=== PATIENT | male | born 1940 | race Caucasian/White ===

== ENCOUNTER 2017-02-08 08:19 | Inpatient (IN) | payer MEDICARE, BC ==
--- NOTE | 2017-02-08 09:09 | RAD ---
EXAM DESCRIPTION: Chest,1 View CLINICAL HISTORY: 76 years Male, dyspnea IMPRESSION: Probable pulmonary fibrosis with reticular changes and honeycombing within the bilateral lung bases. Cardiomegaly. These findings may have progressed when compared to August 05, 2015. No pleural effusion noted. Heart size has remained stable. Electronically signed by: Satish Akins MD 02/08/2017 9:09 AM CDT
[2017-02-08] MEDS ORDERED: methylPREDNISolone SODIUM SUC 125 MG/2 ML VIAL IV ONE ×2 (09:29→12:02)
[2017-02-08] MEDS ORDERED: cefTRIAXone SODIUM 1 GM in SODIUM CHL 0.9% 50ML MIN-BAG+ 50 ML IVPB ONE (09:30)
[2017-02-08] MEDS ORDERED: AZITHROMYCIN IV 500 MG in SODIUM CHLORIDE 0.9% 250ML 250 ML IVPB ONE (09:31)
[2017-02-08] MEDS ORDERED: IPRATROPIUM/ALBUTEROL 3 ML VIAL NEB ONE (09:32)
[2017-02-08] MEDS ORDERED: cefTRIAXone SODIUM 1 GM VIAL ONE (09:35)
[2017-02-08] MEDS ORDERED: AZITHROMYCIN IV 500 MG VIAL IVPB ONE ×2 (09:35→10:29)
[2017-02-08] MEDS ORDERED: SODIUM CHLORIDE 0.9% 250ML 250 ML ONE (09:36)
[2017-02-08] MEDS ORDERED: SODIUM CHL 0.9% 50ML MIN-BAG+ 50 ML IVPB ONE (09:36)
[2017-02-08] MEDS ORDERED: NITROGLYCERIN 2% 1 GM UD TOP ONE (10:17)
[2017-02-08] MEDS ORDERED: FUROSEMIDE INJ 20 MG/2 ML VIAL IV ONE (10:18)
--- NOTE | 2017-02-08 10:23 | ED.PDOC ---
History of Present Illness - General Chief Complaint: Respiratory Problem Stated Complaint: shortness of breath Time Seen by Provider: 02/08/17 08:40 Source: patient Exam Limitations: no limitations - History of Present Illness Initial Comments: Patient presents with dyspnea for one week. He has hx of COPD. He denies chest pain. Dyspnea is worse after 15 feet of walking. He has had previous episodes but none that have lasted this long. Denies cough or fever. Has intermittent bipedal edema that resolves on its own. Mild bipedal edema today. No other complaints. Timing/Duration: 1 week Severity: moderate Improving Factors: rest Worsening Factors: movement Associated Symptoms: denies symptoms Allergies/Adverse Reactions: Allergies NO KNOWN ALLERGY Allergy (Verified 02/08/17 08:31) Review of Systems - Review of Systems EENTM: States: no symptoms reported Respiratory: States: see HPI Cardiology: States: see HPI Gastrointestinal/Abdominal: States: no symptoms reported Genitourinary: States: no symptoms reported Musculoskeletal: States: no symptoms reported Skin: States: no symptoms reported Neurological: States: no symptoms reported Endocrine: States: no symptoms reported Hematologic/Lymphatic: States: no symptoms reported Past Medical History (General) - Patient Medical History Hx Seizures: No Hx Stroke: No Hx Asthma: No Hx of COPD: Yes Hx Cardiac Disorders: No Hx Congestive Heart Failure: No Hx Pacemaker: No Hx Hypertension: Yes Hx Diabetes: No Hx Gastroesophageal Reflux: Yes Hx Cancer: Yes - skin Hx MRSA: No Surgical History: cholecystectomy - Vaccination History Hx Tetanus, Diphtheria Vaccination: No Hx Influenza Vaccination: No Hx Pneumococcal Vaccination: No - Social History Hx Tobacco Use: Yes - quit in 2003 Hx Alcohol Use: Yes - 3 drinks/day Hx Substance Use: No Hx Substance Use Treatment: No Hx Depression: No Hx Physical Abuse: No Hx Emotional Abuse: No - Activities of Daily Living Hospice Agency (if applicable):: None - Female History Patient is a Female of Child Bearing Age (10 -59 yrs old): No Patient : No Family Medical History - Family History Mother Family History: Unknown Living Status: Hx Cardiac Disease: Yes Hx Family Cancer: Yes Physical Exam - Physical Exam General Appearance: Alert Ears, Nose, Throat: normal ENT inspection Neck: non-tender, full range of motion, supple Respiratory: other - distant breath sounds. no wheezes/rales/rhonchi Cardiovascular/Chest: normal peripheral pulses, regular rate, rhythm Gastrointestinal/Abdominal: normal bowel sounds, non tender, soft Back Exam: no CVA tenderness Extremity: pedal edema - bilateral. trace. Neurologic: no motor/sensory deficits Skin Exam: normal color Lymphatic: no adenopathy Progress - Progress Progress: 02/08/17 10:24 83% oxygen on RA. NC at 2-3 liters tks > 93%. EKG read by me showed no ST elevations nor depressions, no T wave inversions. No LBBB. Troponin negative. wbc 15.9 CXR showed honeycombing. BNP 609 Blood cultures taken. Rocephin 1 gram IV x one and Azithromycin 500 mg IV x one. D-dimer negative. Nitropast 1 inch started and Lasix 20 mg IV x one. Admitted for dyspnea and hypoxia. Laboratory Tests 02/08/17 02/08/17 02/08/17 08:24 08:24 08:24 WBC 15.9 H RBC 4.43 L Hgb 13.9 L Hct 41.8 L MCV 94.6 H MCH 31.3 H MCHC 33.3 RDW 12.4 Plt Count 226 MPV 8.2 Absolute Neuts (auto) 12.80 H Absolute Lymphs (auto) 1.70 Absolute Monos (auto) 1.30 H Absolute Eos (auto) 0.10 Absolute Basos (auto) 0.10 Neutrophils % 80.0 H Lymphocytes % 10.4 L Monocytes % 8.4 Eosinophils % 0.6 L Basophils % 0.6 PT 12.5 INR 1.110 PTT (SP) D-Dimer, Quantitative Sodium 131 L Potassium 4.3 Chloride 98 L Carbon Dioxide 23 Anion Gap 14.3 BUN 14 Creatinine 0.92 BUN/Creatinine Ratio 15.2 Random Glucose 133 H Serum Osmolality 265.0 L Lactic Acid Calcium 9.0 Total Bilirubin 1.6 H AST 32 ALT 42 Alkaline Phosphatase 76 Creatine Kinase CK-MB (CK-2) CK-MB (CK-2) % Troponin I B-Natriuretic Peptide Serum Total Protein 7.3 Albumin 4.3 Globulin 3.0 Albumin/Globulin Ratio 1.4 02/08/17 02/08/17 02/08/17 08:24 08:24 09:50 WBC RBC Hgb Hct MCV MCH MCHC RDW Plt Count MPV Absolute Neuts (auto) Absolute Lymphs (auto) Absolute Monos (auto) Absolute Eos (auto) Absolute Basos (auto) Neutrophils % Lymphocytes % Monocytes % Eosinophils % Basophils % PT INR PTT (SP) 28.3 D-Dimer, Quantitative Sodium Potassium Chloride Carbon Dioxide Anion Gap BUN Creatinine BUN/Creatinine Ratio Random Glucose Serum Osmolality Lactic Acid 0.9 Calcium Total Bilirubin AST ALT Alkaline Phosphatase Creatine Kinase 72 CK-MB (CK-2) 3.3 CK-MB (CK-2) % Not Reportable Troponin I 0.02 B-Natriuretic Peptide 609.0 H* Serum Total Protein Albumin Globulin Albumin/Globulin Ratio 02/08/17 10:04 WBC RBC Hgb Hct MCV MCH MCHC RDW Plt Count MPV Absolute Neuts (auto) Absolute Lymphs (auto) Absolute Monos (auto) Absolute Eos (auto) Absolute Basos (auto) Neutrophils % Lymphocytes % Monocytes % Eosinophils % Basophils % PT INR PTT (SP) D-Dimer, Quantitative < 200 Sodium Potassium Chloride Carbon Dioxide Anion Gap BUN Creatinine BUN/Creatinine Ratio Random Glucose Serum Osmolality Lactic Acid Calcium Total Bilirubin AST ALT Alkaline Phosphatase Creatine Kinase CK-MB (CK-2) CK-MB (CK-2) % Troponin I B-Natriuretic Peptide Serum Total Protein Albumin Globulin Albumin/Globulin Ratio Departure - Departure Clinical Impression: Hypoxemia, Dyspnea Disposition: Admit Patient Condition: Good Departure Forms: ED Discharge - Pt. Copy, Patient Portal Self Enrollment Referrals: Rashaun Cassidy MD [Primary Care Provider] - 1-2 Weeks
--- NOTE | 2017-02-08 10:43 | HP ---
SUPERVISING PHYSICIAN: Azeem Pisano MD CHIEF COMPLAINT: Increasing shortness of breath. HISTORY OF PRESENT ILLNESS: Mr. Harris is a 76 year-old male patient who presented to the Emergency Department with a complaint of increasing dyspnea over the last week. He does have a history of significant chronic obstructive pulmonary disease. He notes he has had severe orthopnea and normally does wear oxygen at home periodically when he feels like he needs it but within the last week he has advanced to where he has had to wear it 24 hours a day. He notes that in the past he has had previous episodes similar to this but they resolved without any requirements of medical intervention. He also notes that he has intermittent bilateral pedal edema at times and does take Lasix but really has not had any significant increased pedal edema. He denies any chest pain. He does have a significant history of chronic alcohol abuse, drinking whiskey on a daily basis. Laboratory studies on admission showed that he had a leukocytosis of 15.9 with a left shift. His coagulation studies showed he had a normal D dimer of less than 200 with a normal PT/PTT. Chemistries showed he did have an elevated BNP of 609, his lactic acid was 0.9. Initially on arrival to the Emergency Department on room air, he was showing 02 saturations of 83% improving to greater than 93% with 2 liters nasal cannula. Chest x-ray was completed and per radiology interpretation of a portable chest, there was note that there was probable pulmonary fibrosis with reticular changes and honeycombing within the bilateral lungs with some cardiomegaly. It was also noted the findings on current x-ray have progressed when compared to an x-ray from August 05, 2017. He was afebrile but had noted he had been having subjective fever at home. Given his extensive history of chronic obstructive pulmonary disease and worsening chest films and leukocytosis, there was concern that the patient was having development of a pneumonia resulting in exacerbation of his chronic obstructive pulmonary disease along with some congestive heart failure, although the patient does not have a history formerly of having congestive heart failure. In the Emergency Room, blood cultures were completed and he was started on parenteral antibiotics to include Rocephin and azithromycin. He was then admitted to the medical/surgical floor in stable condition. HOME MEDICATIONS: 1. Lotrel 10/20 mg daily. 2. Symbicort 1 aer inhaled twice a day. 3. Lipitor 40 mg daily. 4. Lasix 40 mg daily. 5. Prilosec 20 mg daily. 6. Potassium chloride extended release 20 mEq daily. 7. Spiriva HandiHaler as directed. PAST MEDICAL HISTORY: 1. Hypertension. 2. Shingles in 2010 on left side of his face. 3. Chronic obstructive pulmonary disease. 4. Tobacco dependency, having quit approximately 10 years previous to this admission. 5. Chronic alcohol abuse. 6. Gastroesophageal reflux disease. 7. Basal cell carcinoma to the face with removal and skin to the forehead approximately 30 years ago. PAST SURGICAL HISTORY: 1. Parotidectomy. 2. Cholecystectomy in 2010. 3. Removal of skin cancer with skin graft to the forehead 30 years previous. 4. Positive colonoscopy in 2011 with benign polyps. FAMILY HISTORY: Positive for heart failure in his father who at age 63 and lung cancer in his mother who at age 65. 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 He is . He does have a history of chronic obstructive pulmonary disease with a 25-year history of smoking at least 1 to 1-1/2 packs a day. He notes that he quit approximately 10 years previously. He does have a history of significant alcohol consumption, drinking at least 1 to 2 mixed drinks daily, preference is whiskey. REVIEW OF SYSTEMS: GENERAL: He does report a subjective fever with no chills, no unintentional weight loss. HEENT: He does have bilateral decreased hearing, he uses hearing aids. CHEST: Respiratory as noted in history of present illness. Significant shortness of breath with some exertional dyspnea as well as severe orthopnea and increasing 02 requirements. Denies any significant cough or sputum production. CARDIOVASCULAR: Denies palpitations, chest pains or syncopal episodes. ABDOMEN: No nausea, vomiting, diarrhea. GENITOURINARY: He does note that he has some increased nocturia but no dysuria , hematuria or other urinary symptoms. EXTREMITIES: Has a history of bilateral pedal edema for which he takes Lasix. NEUROLOGIC: Denies dizziness or syncopal episodes or any other neurological deficits. PHYSICAL EXAMINATION: VITAL SIGNS: On admission, temperature 98.0, pulse 69, blood pressure 163/70, respirations 24. Saturation 83% on room air, after nasal cannula saturation of 93 to 94% with 3 liters at rest. Admission weight 83.0 kg. GENERAL: The patient is alert and appears to be in no acute distress. Very communicative and pleasant. HEENT: He has bilateral hearing aids. There is some dried cerumen but no occlusions. Tympanic membranes appear to be within normal limits. Oropharynx is pink and moist without any lesions. He does have a flushed look to his face and there is an obvious scar and discoloration to his forehead from a previous surgery and he has severe alopecia. NECK: Supple, non-tender, full range of motion. No jugular venous distention. CHEST: Lung sounds are significantly diminished throughout but no rhonchi, rales, or wheezes noted. CARDIOVASCULAR: Slightly irregular rate and rhythm but no murmurs, rubs, or gallops appreciated. ABDOMEN: Obese, soft, non-tender, positive bowel sounds. EXTREMITIES: No edema. No clubbing or cyanosis. NEUROLOGIC: Cranial nerves II through XII are grossly intact. Facial features were symmetrical. Extraocular movements within normal limits. There is no notable nystagmus. He was alert and oriented x 3. No noted motor or sensory neurological deficits. LABORATORY: CBC on admission showed a leukocytosis of 15.9 with a left shift. RBC indices showed a normochromic macrocytic presentation. Coagulation studies showed normal PT/PTT and a D-dimer less than 200. Chemistries showed just a low sodium of 131, potassium normal at 4.3, BUN 14, creatinine 0.92, glucose 133, lactic acid 0.9, calcium 9.0, total bilirubin was 1.6. Liver functions showed to be within normal limits. Troponin 0.02, BNP slightly elevated at 609. Urinalysis showed a trace of blood, otherwise within normal limits. MICROBIOLOGY: Sputum culture pending. Blood cultures pending. RADIOLOGY: Chest x-ray single view in the Emergency Department per radiology interpretation showed probable pulmonary fibrosis with reticular changes and honeycombing within the bilateral lung bases, noted cardiomegaly but heart size appears to be stable compared to August 05, 2015 with other findings having progressed, compared to his previous x-ray there was no note of a pleural effusion. Initial EKG showed second degree AV block type [address] or T-wave inversions and compared to old EKG from medical records, review shows to be a new rhythm as the patient was previously in normal sinus rhythm. ASSESSMENT: 1. Exacerbation of chronic obstructive pulmonary disease with increasing orthopnea and 02 requirements with patient being hypoxic on room air at time of admission with concerns for developing pneumonia community-acquired. 2. History of alcoholism. 3. Electrolyte imbalance with hyponatremia secondary to ongoing alcohol abuse. 4. Leukocytosis with concerns for developing pneumonia, community acquired in a former smoker with advanced chronic obstructive pulmonary disease. 5. Hypertension. 6. Second degree AV block, type 2, when compared to old x-rays appears to be new, unknown etiology with patient not being on any current AV terrance blocking drugs, with patient being asymptomatic without any chest pains on admission. 7. Acute on chronic congestive heart failure with elevated BNP secondary to cor pulmonale from advanced chronic obstructive pulmonary disease with no current echocardiogram available for review. 8. Gastroesophageal reflux disease. PLAN: Mr. Harris will be admitted to the medical/surgical floor for continuation of treatment with concerns for developing with advancing chronic obstructive pulmonary disease exacerbation. He was started on parenteral antibiotics initially to include Rocephin, azithromycin, after blood cultures were completed in the Emergency Department. Given that he does have a significant history of alcoholism, I plan to provide him with some Librium 10 mg every 8 hours in efforts to prevent any alcohol withdrawal symptoms as well treat him with a multivitamin infusion and thiamine with normal saline to help with treatment of the hyponatremia. Will known to with antibiotic therapy as initiated with Rocephin and azithromycin and attempt to obtain a sputum culture. I have also ordered PFT testing and will await those results. Once his medications have been verified and updated in the computer, we will resume those. We will start him on DVT prophylaxis as per protocol. In regards to the chronic obstructive pulmonary disease exacerbation and pneumonia, we will start him on aggressive pulmonary hygiene with bronchodilator therapy, oxygen and p.r.n. breathing treatments. He will also be on telemetry and given the initial presentation of increasing dyspnea, although he wasn't haven't having any chest pains and initial cardiac enzymes were within normal limits, we will go ahead and continue with the serial enzymes and close monitoring of his EKGs to further rule out any underlying myocardial event such as acute myocardial infarction. Given that he does appear to have a new change in rhythm from previous EKGs, at some point he will need a cardiology following, as long as he is stable this can likely be done as an outpatient in followup once discharged. In regards to the chronic obstructive pulmonary disease as well, he was given Solu-Medrol 60 mg IV in the Emergency Department and we will follow this up with an additional 60 on admission and continue with 80 every 6 hours for at least 24 hours with anticipation of transition to p.o. prednisone when clinically improved. Will anticipate length of stay to be 3 to 5 days. Until clinically improved, we will continue to monitor the patient closely and treat appropriately. #[id number] MTDD
[2017-02-08] MEDS ORDERED: ALBUTEROL SULFATE 2.5 MG/3 ML VIAL NEB PRN (11:50)
[2017-02-08] MEDS ORDERED: ACETAMINOPHEN 325 MG TAB PO PRN (11:50)
[2017-02-08] MEDS ORDERED: ONDANSETRON INJ 4 MG/2 ML VIAL IV PRN (11:50)
[2017-02-08] MEDS ORDERED: methylPREDNISolone SODIUM SUC 125 MG/2 ML VIAL IV SCH (12:30)
[2017-02-08] MEDS: IV SET AND CAP CHANGE INJ INJ SCH (12:51)
[2017-02-08] MEDS ORDERED: SODIUM CHLORIDE 0.9% 1000ML 1,000 ML ONE (13:47)
[2017-02-08] MEDS ORDERED: THIAMINE HCL INJ 100 MG/ML VIAL ONE (13:47)
[2017-02-08] MEDS ORDERED: MULTIPLE VITAMIN 10 ML VIAL ONE (13:47)
[2017-02-08] MEDS: chlordiazePOXIDE HCL 5 MG CAP PO SCH ×3 (14:02→20:38)
[2017-02-08] MEDS: MULTIPLE VITAMIN INJ 10 ML, THIAMINE HCL INJ 100 MG in SODIUM CHLORIDE 0.9% 1000ML 1,00... IVS SCH (14:03)
[2017-02-08] MEDS: IPRATROPIUM/ALBUTEROL 3 ML VIAL INH SCH ×3 (16:45→20:09)
[2017-02-08] MEDS: NON-FORMULARY MEDICATION 1 EA MIS (Potassium Chloride [Potassium Chloride Er] 20 MEQ) PO SCH (17:44)
[2017-02-08] MEDS: FUROSEMIDE 40 MG TAB PO SCH (17:44)
[2017-02-08] MEDS: NON-FORMULARY MEDICATION 1 EA MIS (Atorvastatin Calcium [Lipitor] 40 MG) PO SCH (17:44)
[2017-02-08] MEDS: methylPREDNISolone SODIUM SUC 125 MG/2 ML VIAL IV SCH (20:36)
[2017-02-08] MEDS: SODIUM CHLORIDE 0.9% (FLUSH) 10 ML SYG IV SCH (20:37)
[2017-02-09] MEDS: SODIUM CHLORIDE 0.9% (FLUSH) 10 ML SYG IV PRN (02:00)
[2017-02-09] MEDS: methylPREDNISolone SODIUM SUC 125 MG/2 ML VIAL IV SCH ×4 (02:00→22:05)
[2017-02-09] MEDS ORDERED: POTASSIUM CHLORIDE 20 MEQ TAB ONE (05:32)
[2017-02-09] MEDS ORDERED: PANTOPRAZOLE SODIUM IV 40 MG VIAL ONE (05:32)
[2017-02-09] MEDS ORDERED: ATORVASTATIN 20 MG TAB PO ONE ×2 (05:32→19:56)
[2017-02-09] MEDS: NON-FORMULARY MEDICATION 1 EA MIS (Atorvastatin Calcium [Lipitor] 40 MG) PO SCH (06:27)
[2017-02-09] MEDS: NON-FORMULARY MEDICATION 1 EA MIS (Potassium Chloride [Potassium Chloride Er] 20 MEQ) PO SCH (06:27)
[2017-02-09] MEDS: PANTOPRAZOLE SODIUM IV 40 MG VIAL IV SCH (06:28)
[2017-02-09] MEDS: FUROSEMIDE 40 MG TAB PO SCH (06:28)
--- NOTE | 2017-02-09 07:20 | RAD ---
Procedure: XR CHEST 2 VIEWS Exam Date: 02/09/2017 Ordering Provider: Chin Guzman NP Clinical Indication: Pneumonia Comparison: 02/08/2017 Findings: Cardiomediastinal silhouette is stable. Focal lung consolidation: Changes of chronic interstitial lung disease. Bibasilar atelectasis and/or infiltrate. Pleural effusion: None Pneumothorax: None Acute bony or soft tissue abnormality: None Impression: 1. Chronic interstitial lung disease with bibasilar atelectasis and/or infiltrate. Electronically signed by: Herb Modi MD 02/09/2017 7:19 AM CDT
[2017-02-09] MEDS ORDERED: SODIUM CHLORIDE 0.9% 250ML 250 ML ONE (07:48)
[2017-02-09] MEDS ORDERED: AZITHROMYCIN IV 500 MG VIAL IVPB ONE (07:48)
[2017-02-09] MEDS: IPRATROPIUM/ALBUTEROL 3 ML VIAL INH SCH ×4 (08:33→20:00)
[2017-02-09] MEDS: chlordiazePOXIDE HCL 5 MG CAP PO SCH ×4 (08:54→20:21)
[2017-02-09] MEDS: AZITHROMYCIN IV 500 MG in SODIUM CHLORIDE 0.9% 250ML 250 ML IVPB SCH (08:55)
[2017-02-09] MEDS: SODIUM CHLORIDE 0.9% (FLUSH) 10 ML SYG IV SCH ×2 (09:15→20:22)
[2017-02-09] MEDS ORDERED: cefTRIAXone SODIUM 1 GM VIAL ONE (12:09)
[2017-02-09] MEDS ORDERED: SODIUM CHL 0.9% 50ML MIN-BAG+ 50 ML IVPB ONE (12:09)
[2017-02-09] MEDS ORDERED: SODIUM CHLORIDE 0.9% 1000ML 1,000 ML ONE (12:10)
[2017-02-09] MEDS ORDERED: THIAMINE HCL INJ 100 MG/ML VIAL ONE (12:11)
[2017-02-09] MEDS ORDERED: MULTIPLE VITAMIN 10 ML VIAL ONE (12:11)
[2017-02-09] MEDS: cefTRIAXone SODIUM 1 GM in SODIUM CHL 0.9% 50ML MIN-BAG+ 50 ML IVPB SCH (12:15)
[2017-02-09] MEDS: MULTIPLE VITAMIN INJ 10 ML, THIAMINE HCL INJ 100 MG in SODIUM CHLORIDE 0.9% 1000ML 1,00... IVS SCH (12:48)
--- NOTE | 2017-02-09 14:04 | PN ---
SUPERVISING PHYSICIAN: Azeem Pisano MD DATE: 02/09/17 SUBJECTIVE: The patient is sitting up in his bed watching television. He has no complaints of chest pain, nausea, vomiting, diarrhea, or constipation. He does say that his shortness of breath is improved, but he still gets short of breath with exertion. OBJECTIVE: VITAL SIGNS: Afebrile. Heart rate 95. Blood pressure 157/67. Respiratory rate 20. O2 saturation low 90s, but he has dropped to 88% on several occasions. LUNGS: Diminished in the bases. There are expiratory wheezes throughout and some scattered rhonchi. CARDIAC: Regular rate and rhythm. ABDOMEN: Soft, nontender, nondistended. Bowel sounds are positive. EXTREMITIES: No cyanosis, clubbing or edema. NEUROLOGIC: Awake, alert and oriented times three. LABORATORY: WBC have slightly improved to 12.4, hemoglobin 12.4, hematocrit 36.9. Sodium has improved to 133, potassium 4.1, chloride 100. Preliminary blood cultures show no growth after 24 hours. Chest x-ray per radiologic interpretation shows chronic interstitial lung disease with bibasilar atelectasis and/or infiltrate. All other labs and films have been reviewed via the EMR. ASSESSMENT: 1. Exacerbation of chronic obstructive pulmonary disease with increasing orthopnea and 02 requirements with patient being hypoxic on room air at time of admission with concerns for developing pneumonia community-acquired. 2. History of alcoholism. 3. Electrolyte imbalance with hyponatremia secondary to ongoing alcohol abuse. 4. Leukocytosis with concerns for developing pneumonia, community acquired in a former smoker with advanced chronic obstructive pulmonary disease. 5. Hypertension. 6. Second degree AV block, type 2, when compared to old x-rays appears to be new, unknown etiology with patient not being on any current AV terrance blocking drugs, with patient being asymptomatic without any chest pains on admission. 7. Acute on chronic congestive heart failure with elevated BNP secondary to cor pulmonale from advanced chronic obstructive pulmonary disease with no current echocardiogram available for review. 8. Gastroesophageal reflux disease. PLAN: We will continue present supportive care. I have added an ambulation study to assess his oxygenation. He does wear O2 at home and we will make sure he goes home on that. He may need to wear O2 during the day as well. I will continue his antibiotics. I have decreased his steroids for now. We will continue to monitor that closely. We will encourage good pulmonary hygiene. I have ordered labs for in the morning. Dr. Pisano is the collaborating physician and available for consultation. [facility][id number] [facility]
[2017-02-09] MEDS ORDERED: methylPREDNISolone SODIUM SUC 125 MG/2 ML VIAL ONE (19:57)
[2017-02-09] MEDS: ATORVASTATIN 20 MG TAB PO SCH (20:21)
[2017-02-09] MEDS: guaiFENesin ER TAB 600 MG TAB PO SCH (23:11)
[2017-02-10] MEDS: SODIUM CHLORIDE 0.9% (FLUSH) 10 ML SYG IV PRN (05:46)
[2017-02-10] MEDS: PANTOPRAZOLE SODIUM IV 40 MG VIAL IV SCH (05:46)
[2017-02-10] MEDS: methylPREDNISolone SODIUM SUC 125 MG/2 ML VIAL IV SCH ×3 (05:51→17:38)
[2017-02-10] MEDS ORDERED: FUROSEMIDE 40 MG TAB ONE (07:13)
[2017-02-10] MEDS ORDERED: SODIUM CHL 0.9% 50ML MIN-BAG+ 50 ML IVPB ONE (07:13)
[2017-02-10] MEDS ORDERED: SODIUM CHLORIDE 0.9% 1000ML 0 ML ONE (07:13)
[2017-02-10] MEDS ORDERED: SODIUM CHLORIDE 0.9% 250ML 250 ML ONE (07:13)
[2017-02-10] MEDS ORDERED: AZITHROMYCIN IV 500 MG VIAL IVPB ONE (07:14)
[2017-02-10] MEDS ORDERED: cefTRIAXone SODIUM 1 GM VIAL ONE (07:14)
[2017-02-10] MEDS ORDERED: THIAMINE HCL INJ 100 MG/ML VIAL ONE (07:14)
[2017-02-10] MEDS ORDERED: MULTIPLE VITAMIN 10 ML VIAL ONE (07:15)
[2017-02-10] MEDS: POTASSIUM CHLORIDE 20 MEQ TAB PO SCH (07:53)
[2017-02-10] MEDS: IPRATROPIUM/ALBUTEROL 3 ML VIAL INH SCH ×4 (08:20→19:32)
[2017-02-10] MEDS: AZITHROMYCIN IV 500 MG in SODIUM CHLORIDE 0.9% 250ML 250 ML IVPB SCH (08:35)
[2017-02-10] MEDS: guaiFENesin ER TAB 600 MG TAB PO SCH ×2 (08:37→20:33)
[2017-02-10] MEDS: SODIUM CHLORIDE 0.9% (FLUSH) 10 ML SYG IV SCH ×2 (08:37→20:34)
[2017-02-10] MEDS: chlordiazePOXIDE HCL 5 MG CAP PO SCH ×4 (08:37→20:33)
[2017-02-10] MEDS: FUROSEMIDE 40 MG TAB PO SCH (08:38)
[2017-02-10] MEDS: THIAMINE HCL 100 MG TAB PO SCH (10:18)
[2017-02-10] MEDS: PRENATAL MULTIVIT-MIN W/FE-FA 1 EA TAB PO SCH (10:18)
--- NOTE | 2017-02-10 10:45 | PN ---
SUPERVISING PHYSICIAN: Azeem Pisano MD DATE: 02/10/17 SUBJECTIVE: The patient is sitting up in his chair in his hospital room. He has no complaints of chest pain, abdominal pain, nausea, vomiting, or diarrhea. He continues to get short of breath. He had earlier done an ambulation study and said he got quite short of breath when he was doing that. Otherwise, he does feel like he is improving. OBJECTIVE: VITAL SIGNS: Afebrile. Pulse 78. Blood pressure 153/74. Respiratory rate 20. O2 saturation 93% on 2 liters nasal cannula. LUNGS: Diminished breath sounds throughout. He does get tachypneic with exertion. CARDIAC: Regular rate and rhythm. ABDOMEN: Soft, nontender, nondistended. Bowel sounds are positive. EXTREMITIES: No cyanosis, clubbing or edema. NEUROLOGIC: Awake, alert and oriented times three. LABORATORY: WBCs 17.4, hemoglobin 12.3, hematocrit 36.9, neutrophils 90.8. Sodium 137, potassium 4, chloride 103, carbon dioxide 24, BUN 17, creatinine 0.95, glucose 162, serum total protein 6.2. Preliminary blood cultures show no growth after 48 hours. An ambulation study revealed an 83% oxygen saturation on room air during the study. All other labs and films have been reviewed via the EMR. ASSESSMENT: 1. Exacerbation of chronic obstructive pulmonary disease with increasing orthopnea and 02 requirements with patient being hypoxic on room air at time of admission with concerns for developing pneumonia community-acquired. 2. History of alcoholism. 3. Electrolyte imbalance with hyponatremia secondary to ongoing alcohol abuse. 4. Leukocytosis with concerns for developing pneumonia, community acquired in a former smoker with advanced chronic obstructive pulmonary disease. 5. Hypertension. 6. Second degree AV block, type 2, when compared to old x-rays appears to be new, unknown etiology with patient not being on any current AV terrance blocking drugs, with patient being asymptomatic without any chest pains on admission. 7. Acute on chronic congestive heart failure with elevated BNP secondary to cor pulmonale from advanced chronic obstructive pulmonary disease with no current echocardiogram available for review. 8. Gastroesophageal reflux disease. PLAN: We will continue present supportive care. I have ordered AM lab and chest x-ray for the morning. I have increased his steroid again due to worsening of his lung sounds. I will repeat the ambulation study tomorrow. He may have to wear oxygen at all times when he goes home. He also may need a chronic steroid dosing, but we will have him closely followup with a unemployment specialist after discharge. Continue to encourage good pulmonary toilet. We will follow as needed and treat as appropriate. Dr. Pisano is the collaborating physician and available for consultation. #[id number] [facility]
[2017-02-10] MEDS: cefTRIAXone SODIUM 1 GM in SODIUM CHL 0.9% 50ML MIN-BAG+ 50 ML IVPB SCH (13:04)
[2017-02-10] MEDS: NICOTINE PATCH 14 MG TD SCH ×2 (19:25→22:58)
[2017-02-10] MEDS ORDERED: NICOTINE PATCH 14 MG TD ONE (19:25)
[2017-02-10] MEDS ORDERED: PANTOPRAZOLE SODIUM TAB 40 MG PO ONE (19:36)
[2017-02-10] MEDS: ATORVASTATIN 20 MG TAB PO SCH (20:34)
[2017-02-11] MEDS: methylPREDNISolone SODIUM SUC 125 MG/2 ML VIAL IV SCH ×4 (00:30→22:17)
[2017-02-11] MEDS: PANTOPRAZOLE SODIUM TAB 40 MG PO SCH (05:59)
--- NOTE | 2017-02-11 06:52 | RAD ---
Procedure: XR CHEST 2 VIEWS Exam Date: 02/11/2017 Ordering Provider: SWAPNIL HARTMAN Clinical Indication: copd Comparison: 02/09/2017 Findings: Cardiomediastinal silhouette is stable. Focal lung consolidation: Changes of chronic interstitial lung disease. Bibasilar atelectasis and/or infiltrate. Pleural effusion: None Pneumothorax: None Acute bony or soft tissue abnormality: None Impression: 1. Stable features of chronic interstitial lung disease with bibasilar atelectasis/scarring and/or infiltrate. Electronically signed by: Herb Modi MD 02/11/2017 6:51 AM CDT
[2017-02-11] MEDS: POTASSIUM CHLORIDE 20 MEQ TAB PO SCH (08:07)
[2017-02-11] MEDS: IPRATROPIUM/ALBUTEROL 3 ML VIAL INH SCH ×4 (08:23→20:13)
[2017-02-11] MEDS: PRENATAL MULTIVIT-MIN W/FE-FA 1 EA TAB PO SCH (10:00)
[2017-02-11] MEDS: THIAMINE HCL 100 MG TAB PO SCH (10:00)
[2017-02-11] MEDS: guaiFENesin ER TAB 600 MG TAB PO SCH ×2 (10:01→20:17)
[2017-02-11] MEDS: chlordiazePOXIDE HCL 5 MG CAP PO SCH ×4 (10:01→20:17)
[2017-02-11] MEDS: FUROSEMIDE 40 MG TAB PO SCH (10:01)
[2017-02-11] MEDS: AZITHROMYCIN 250 MG TAB PO SCH (10:01)
[2017-02-11] MEDS: SODIUM CHLORIDE 0.9% (FLUSH) 10 ML SYG IV SCH ×2 (10:02→20:17)
--- NOTE | 2017-02-11 11:15 | PN ---
SUPERVISING PHYSICIAN: Azeem Pisano MD DATE: 02/11/17 SUBJECTIVE: The patient is sitting up in his bed watching television. He continues to have shortness of breath occasionally with exertion, but he is feeling better. He denies chest pain, nausea, vomiting, diarrhea. OBJECTIVE: VITAL SIGNS: He is afebrile. Heart rate 94. Blood pressure 161/ 22. Respiratory rate 22. O2 saturation 94% and during his ambulation study yesterday, he dropped to 83% on room air. LUNGS: Diminished sounds throughout. No wheezes or rhonchi. CARDIAC: Regular rate and rhythm. ABDOMEN: Soft, nontender, nondistended. Bowel sounds are positive. EXTREMITIES: No cyanosis, clubbing or edema. NEUROLOGIC: Awake, alert and oriented times three. LABORATORY: White count decreased to 15,700, hemoglobin and hematocrit are stable at 13.2 and 39.8. Neutrophils 92.5. Sodium 138, potassium 4.2, chloride 103, carbon dioxide 26, BUN 20, creatinine 0.98, glucose 163. Preliminary sputum culture shows normal terrance at 24 hours. Preliminary blood cultures show no growth after three days. Chest x-ray per radiologic interpretation shows stable features of chronic interstitial lung disease with bibasilar atelectasis, scarring and/or infiltrate. All other labs and films have been reviewed via the EMR. ASSESSMENT: 1. Exacerbation of chronic obstructive pulmonary disease with increasing orthopnea and 02 requirements with patient being hypoxic on room air at time of admission with concerns for developing pneumonia community-acquired. 2. History of alcoholism. 3. Electrolyte imbalance with hyponatremia secondary to ongoing alcohol abuse. 4. Leukocytosis with concerns for developing pneumonia, community acquired in a former smoker with advanced chronic obstructive pulmonary disease. 5. Hypertension. 6. Second degree AV block, type 2, when compared to old x-rays appears to be new, unknown etiology with patient not being on any current AV terrance blocking drugs, with patient being asymptomatic without any chest pains on admission. 7. Acute on chronic congestive heart failure with elevated BNP secondary to cor pulmonale from advanced chronic obstructive pulmonary disease with no current echocardiogram available for review. 8. Gastroesophageal reflux disease. PLAN: We will continue present supportive care. I have consulted physical therapy for evaluation of Swing Bed and to make sure he is safe to go home. We will await his ambulation study this afternoon as he may have to go home on oxygen at all times. no more than 2 liters per minute, and will need a portable oxygen concentrator. He has a followup appointment with Dr. Cassidy for next week. He will need a pulmonary consult at that time, as well as pulmonary rehab referral. I have also consulted [facility] for his home health after discharge. I very slowly decreased his steroid and I will try to change him maybe to oral steroids tomorrow. He probably will have to go home on a continued dose of steroids until he sees the adult education professional. I have ordered routine labs for in the morning. We will continue to monitor the patient closely and followup as needed. Dr. Pisano is the collaborating physician and available for consultation. [facility][id number] [facility]
[2017-02-11] MEDS ORDERED: SODIUM CHL 0.9% 50ML MIN-BAG+ 50 ML IVPB ONE (11:34)
[2017-02-11] MEDS ORDERED: cefTRIAXone SODIUM 1 GM VIAL ONE (11:35)
[2017-02-11] MEDS: cefTRIAXone SODIUM 1 GM in SODIUM CHL 0.9% 50ML MIN-BAG+ 50 ML IVPB SCH (11:47)
[2017-02-11] MEDS: IV SET AND CAP CHANGE INJ INJ SCH (12:13)
[2017-02-11] MEDS: ATORVASTATIN 20 MG TAB PO SCH (20:17)
[2017-02-12] MEDS: methylPREDNISolone SODIUM SUC 125 MG/2 ML VIAL IV SCH (06:15)
[2017-02-12] MEDS: PANTOPRAZOLE SODIUM TAB 40 MG PO SCH (06:15)
[2017-02-12 06:21] VITALS: O2SAT 96
[2017-02-12] MEDS: POTASSIUM CHLORIDE 20 MEQ TAB PO SCH (07:51)
[2017-02-12] MEDS: PRENATAL MULTIVIT-MIN W/FE-FA 1 EA TAB PO SCH (07:54)
[2017-02-12] MEDS: THIAMINE HCL 100 MG TAB PO SCH (07:55)
[2017-02-12] MEDS: AZITHROMYCIN 250 MG TAB PO SCH (07:55)
[2017-02-12] MEDS: FUROSEMIDE 40 MG TAB PO SCH (07:55)
[2017-02-12] MEDS: guaiFENesin ER TAB 600 MG TAB PO SCH (07:56)
[2017-02-12] MEDS: SODIUM CHLORIDE 0.9% (FLUSH) 10 ML SYG IV SCH (07:56)
[2017-02-12] MEDS: chlordiazePOXIDE HCL 5 MG CAP PO SCH (07:57)
[2017-02-12] MEDS: IPRATROPIUM/ALBUTEROL 3 ML VIAL INH SCH (08:29)
[2017-02-12 09:38] VITALS: BP 153/80; TEMP 98
--- NOTE | 2017-02-12 10:26 | DS ---
SUPERVISING PHYSICIAN: Azeem Pisaon MD DISCHARGE DIAGNOSIS: 1. Exacerbation of chronic obstructive pulmonary disease with increasing orthopnea and 02 requirements at time of admission. 2. History of alcoholism. 3. Electrolyte imbalance with hyponatremia, now resolved. 4. Leukocytosis with concerns for developing pneumonia, but may have been complicated by high dose corticosteroids. 5. Hypertension. 6. Acute on chronic congestive heart failure with elevated BNP secondary to cor pulmonale from advanced chronic obstructive pulmonary disease with no current echocardiogram for review. 7. Gastroesophageal reflux disease. 8. History of tobacco abuse, although he no longer smokes. HISTORY OF PRESENT ILLNESS: This is a 76-year-old male patient who was admitted to the hospital from the Emergency Room after increased complaints of shortness of breath for over a week. He has a significant history of chronic obstructive pulmonary disease. There is also some question of some interstitial lung disease. He quit smoking approximately ten years ago, but he had a 25 to 30 pack year history. He also drinks a significant amount of alcohol daily. He was admitted to the hospital for an exacerbation of chronic obstructive pulmonary disease with concerns for developing pneumonia. His CBC on admission showed a leukocytosis of 15.9 a low sodium of 131. His initial chest x-ray showed probable pulmonary fibrosis with reticular changes and honeycombing within the bilateral lung bases with noted cardiomegaly. He was treated with high dose steroids as well as azithromycin and Rocephin. He wears O2 at home at night, but during his hospital stay, he required oxygen during the day. His steroids were tapered down, but then had to be resumed at the higher dosing due to his poor lung compliance and his ambulation study revealed his oxygen saturation dropped down to 83% on room air. The next day, his ambulation study revealed that even when he was wearing oxygen, his O2 saturations dropped into the mid-80s, but he did recover much more quickly if his oxygen is in use. The patient has completed his Rocephin and his azithromycin. He will be discharged home today with very close full followup. He was previously a patient of Dr. Devi for his pulmonary concerns and he sees Dr. Cassidy as his primary care physician. DISCHARGE PLAN: The patient will be discharged home in stable condition condition with [facility]. I have given him a steroid taper, but he is to continue on prednisone 10 mg daily at the end of his taper until he sees a benzene washer. It is recommended that he have a followup with one of the pulmonary doctors from [facility] in [place]. He normally wears O2 only at night, but I have increased his oxygen to wear it at all times and no more than 2 liters per minute. He will also need pulmonary rehab and Dr. Cassidy will need to order that as pulmonary rehab will start sometime in early February at [facility]. He is to resume his previous home medications. He has an appointment with Dr. Cassidy on , 02/17/17, for followup. He is to return to the hospital or call Dr. Cassidy's office for any further questions or complications. DISCHARGE MEDICATIONS: 1. Spiriva. 2. Potassium chloride. 3. Omeprazole. 4. Furosemide. 5. Symbicort. 6. Lipitor. 7. Lotrel. 8. Albuterol. 9. Guaifenesin. 10. Prednisone. Dr. Pisano is the collaborating physician and available for consultation. #[id number] [facility]
[2017-02-12] MEDS: cefTRIAXone SODIUM 1 GM in SODIUM CHL 0.9% 50ML MIN-BAG+ 50 ML IVPB SCH (12:10)
== END 2017-02-12 12:54 | disposition home health service (06) | DRG 190 ==
LOC: ER 08:19 → MS 10:42
PROVIDERS: ADMIT Nurse Practitioner Family; ATTEND Nurse Practitioner Acute Care
DX: J44.0 Chronic obstructive pulmonary disease with (acute) lower respiratory infection (principal); J18.9 Pneumonia, unspecified organism; E87.1 Hypo-osmolality and hyponatremia; J44.1 Chronic obstructive pulmonary disease with (acute) exacerbation; I11.0 Hypertensive heart disease with heart failure; I50.9 Heart failure, unspecified; I27.81 Cor pulmonale (chronic); K21.9 Gastro-esophageal reflux disease without esophagitis; I44.1 Atrioventricular block, second degree; R09.02 Hypoxemia; F10.20 Alcohol dependence, uncomplicated; E66.9 Obesity, unspecified; Z87.891 Personal history of nicotine dependence; Z68.27 Body mass index [BMI] 27.0-27.9, adult

== ENCOUNTER → 2017-11-16 | Outpatient (CLI) | payer BC, MEDICARE | LOC: NC 08:51 | PROVIDERS: ATTEND Family Medicine | DX: R30.0 Dysuria (principal); N40.1 Benign prostatic hyperplasia with lower urinary tract symptoms; J44.9 Chronic obstructive pulmonary disease, unspecified; I11.0 Hypertensive heart disease with heart failure; I50.9 Heart failure, unspecified; K21.9 Gastro-esophageal reflux disease without esophagitis ==

== ENCOUNTER 2018-02-20 11:15 | Emergency (ER) | payer MEDICARE, BC ==
--- NOTE | 2018-02-20 11:29 | ED.PDOC ---
History of Present Illness - General Chief Complaint: Trauma Time Seen by Provider: 02/20/18 11:19 Source: patient, family Exam Limitations: no limitations - History of Present Illness Initial Comments: The patient presents status post fall x4 days ago. The patient was walking into his home, and as he entered this area he was noted to catch his foot onto part of the door which caused him to trip and fall onto his right trunk. The patient states that he has no associated LOC/cephalgia with this issue. Occurred: other - 4 days ago Severity: moderate Pain Location: head, chest Method of Injury: fall Improving Factors: rest Worsening Factors: movement Loss of Consciousness: no loss of consciousness Associated Symptoms (Fall): denies symptoms Allergies/Adverse Reactions: Allergies NO KNOWN ALLERGY Allergy (Verified 02/08/17 08:31) Home Medications: Ambulatory Orders Amlodipine Besylate-Benazepril [Lotrel 10-20 mg] 10 - 20 mg PO DAILY 02/08/17 Atorvastatin Calcium [Lipitor] 40 mg PO DAILY 02/08/17 Furosemide [Lasix] 40 mg PO DAILY 02/08/17 Omeprazole [Prilosec Cap] 20 mg PO DAILY 02/08/17 Review of Systems - Review of Systems Constitutional: States: no symptoms reported EENTM: States: no symptoms reported Respiratory: States: other - shortness of breath(chronic) due to his copd. Cardiology: States: no symptoms reported Gastrointestinal/Abdominal: States: no symptoms reported Genitourinary: States: no symptoms reported Musculoskeletal: States: see HPI Skin: States: other - abrasions Neurological: States: no symptoms reported Endocrine: States: no symptoms reported Hematologic/Lymphatic: States: no symptoms reported Past Medical History (General) - Patient Medical History Hx Seizures: No Hx Stroke: No Hx Asthma: No Hx of COPD: Yes - pt. states for about 10yrs. Hx Cardiac Disorders: No Hx Congestive Heart Failure: No Hx Pacemaker: No Hx Hypertension: Yes Hx Diabetes: No Hx Gastroesophageal Reflux: Yes Hx Cancer: Yes - skin Hx MRSA: No - Vaccination History Hx Tetanus, Diphtheria Vaccination: No Hx Influenza Vaccination: No Hx Pneumococcal Vaccination: No - Social History Hx Tobacco Use: Yes - quit in 2003 Hx Alcohol Use: Yes - Pt states 3 cups a day Hx Substance Use: No Hx Substance Use Treatment: No Hx Depression: No Hx Physical Abuse: No Hx Emotional Abuse: No - Female History Patient : No Family Medical History - Family History Mother Family History: Unknown Living Status: Hx Cardiac Disease: Yes Hx Family Cancer: Yes Physical Exam - Physical Exam General Appearance: Alert, Well Developed, Well Groomed Head Injury: swelling, tenderness, other - there is no connor sign/raccon eyes noted. ENT Exam: hearing grossly normal, other - no hemotympanum Neck Exam: non-tender, full range of motion Cardiovascular/Respiratory: regular rate, rhythm Gastrointestinal/Abdominal: normal bowel sounds, non tender, soft Back Exam: normal inspection, other - there is ttp of the right lateral trunk noted. Neurologic: alert, oriented x 3 Skin Exam: other - +abrasions of the forehead noted - [place] Coma Score Best Verbal Response ([place]io): (5) oriented Best Motor Response ([place]): (6) obeys commands Progress - Progress Progress: 02/20/18 11:38 MDM PATIENT PRESENTATION APPEARS TO BE CONSISTENT WITH INJURIES DUE TO TRAUMA. WILL ORDER IMAGING OF AREAS THAT WERE INJURED(CT HEAD to evaluate for intracranial pathology as well as CXR to evaluate for intrathoracic patholoyg) TO EVALUATE FOR EMERGENT PATHOLOGY IN THESE AREAS. IF NOTHING EMERGENT FOUND, DISPO WILL BE HOME. 02/20/18 12:07 THE PATIENT IS RESTING COMFORTABLY AT THIS TIME. HE IS W/O ACUTE COMPLAINTS 02/20/18 1245 THE PATIENT REMAINS WELL. HE HAS BEEN ADVISED OF HIS CT WELL CXR FINDINGS AND THAT HE MUST FOLLOW UP WITH HIS PCP IN 3 DAYS FOR RECHECK AND REVIEW OF TODAYS RESULTS. HE IS ADVISED THAT HE MUST RETURN TO THE ED IF ANY CONCERNS ARISE SUCH INCREASED PAIN,SHORTNESS OF BREATH, WEAKNESS, HEADACHE OR ANY OTHER ISSUES ARISE. THE PATIENT VERBALZIED UNDERSTANDING OF THESE INSTRUCTIONS AND STATES HE WILL FOLLOW UP DIRECTED. - EKG/XRAY/CT XRAY: chest Xray Comments: radiology report reviewed. CT Ordered: Yes - ct head negative per radiologist Departure - Departure Clinical Impression: COPD (chronic obstructive pulmonary disease) Fall Qualifiers: Encounter type: sequela Qualified Code(s): W19.XXXS - Unspecified fall, sequela Closed head injury Qualifiers: Encounter type: initial encounter Qualified Code(s): S09.90XA - Unspecified injury of head, initial encounter Disposition: Discharge to Home or Self Care Condition: Excellent Departure Forms: ED Discharge - Pt. Copy, Patient Portal Self Enrollment Instructions: Head Injury (Alternative Therapy), DI for Trauma Diet: resume usual diet Activity: walking as tolerated Referrals: Rashaun Cassidy MD [Primary Care Provider] - 1-2 Days (RETURN TO THE ED IF ANY CONCERNS ARISE SUCH INCREASED PAIN,SHORTNESS OF BREATH, WEAKNESS, HEADACHE OR ANY OTHER ISSUES ARISE. ALSO PLEASE SEE YOUR PCP FOR REPEAT CHEST X-RAY WELL TO REVIEW TODAY'S TEST RESULTS.) Home Medications: Ambulatory Orders Amlodipine Besylate-Benazepril [Lotrel 10-20 mg] 10 - 20 mg PO DAILY 02/08/17 Atorvastatin Calcium [Lipitor] 40 mg PO DAILY 02/08/17 Furosemide [Lasix] 40 mg PO DAILY 02/08/17 Omeprazole [Prilosec Cap] 20 mg PO DAILY 02/08/17
[2018-02-20 11:56] VITALS: TEMP 98.6
[2018-02-20] MEDS: ACETAMINOPHEN 325 MG TAB PO ONE (11:56)
--- NOTE | 2018-02-20 12:02 | CT ---
Study: CT of the Head. Indication: trauma Technique: Axial CT images of the head were acquired without intravenous contrast. This exam was performed according to our departmental dose-optimization program, which includes automated exposure control, adjustment of the mA and/or kV according to patient size and/or use of iterative reconstruction technique. Comparison: None. Findings: No CT evidence of acute ischemia, acute hemorrhage, mass, mass effect, midline shift, or extra-axial fluid collection. Ventricles are normal in configuration without hydrocephalus. Patchy hypoattenuation of the periventricular and subcortical white matter noted. This is nonspecific but most consistent with chronic microvascular ischemic change. Global parenchymal volume loss and intracranial atherosclerosis noted as well. Paranasal sinuses are adequately aerated. Mastoid air cells are adequately aerated. Osseous structures and soft tissues are unremarkable. Impression: 1. No CT evidence of acute intracranial abnormality. 2. Senescent changes. Electronically signed by: Solis Epperson MD 02/20/2018 12:01 PM CDT
--- NOTE | 2018-02-20 12:20 | RAD ---
Study: Frontal and Lateral Views of the Chest. Indication: trauma Comparison: February 11, 2017. Impression: Heart size normal. Atherosclerosis aorta. Emphysematous changes and scarring scattered throughout the lungs redemonstrated. Slightly progressed opacities noted at the base of the right lung and peripheral aspect of the mid right lung. Follow-up to resolution recommended. Similar-appearing changes at the left lung base. No pleural effusion or pneumothorax. Degenerative changes of the spine noted. Electronically signed by: Solis Epperson MD 02/20/2018 12:19 PM CDT
[2018-02-20 12:46] VITALS: BP 124/78; O2SAT 96
== END 2018-02-20 13:17 | disposition home or self-care (01) ==
LOC: ER 11:15
DX: S09.90XA Unspecified injury of head, initial encounter (principal); J44.9 Chronic obstructive pulmonary disease, unspecified; I10 Essential (primary) hypertension; K21.9 Gastro-esophageal reflux disease without esophagitis; Z85.828 Personal history of other malignant neoplasm of skin; Z87.891 Personal history of nicotine dependence; W01.198A Fall on same level from slipping, tripping and stumbling with subsequent striking against other object, initial encounter; Y92.009 Unspecified place in unspecified non-institutional (private) residence as the place of occurrence of the external cause

== ENCOUNTER → 2018-10-12 | Outpatient (CLI) | payer MEDICARE, BC | LOC: NC 10:45 | PROVIDERS: ATTEND Family Medicine | DX: I11.0 Hypertensive heart disease with heart failure (principal); I50.9 Heart failure, unspecified ==

== ENCOUNTER → 2018-12-21 | Outpatient (CLI) | payer MEDICARE, BC | LOC: GMAE 10:36 | PROVIDERS: ATTEND Family Medicine | DX: I10 Essential (primary) hypertension (principal) ==

== ENCOUNTER → 2019-12-31 | Outpatient (CLI) | payer MEDICARE | LOC: GMAE 11:27 | PROVIDERS: ATTEND Family Medicine | DX: I10 Essential (primary) hypertension (principal); E78.2 Mixed hyperlipidemia ==